=== PATIENT | male | born 1980 | race Caucasian/White ===

== ENCOUNTER 2018-12-15 12:18 | Emergency (ER) | payer OTHER ==
[~2018-12-15] VITALS: Wt 75.5 kg
[2018-12-15 12:21] VITALS: BP 116/61; PULSE 63; RESP 20
[2018-12-15] MEDS ORDERED: AMOX1TAB9 PO (13:08)
--- NOTE | 2018-12-15 13:12 | ERD ---
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 Patient was just recently started on Augmentin and states that the Augmentin seems to be helping. He has been having less swelling and pain in his left lower jaw. He reports no fevers or chills. However, he states that he just got out of a detox facility and is now running out of his antibiotic. Currently he reports no fevers, chills or difficulty speaking. ROS All systems reviewed and are negative except as per history of present illness. Medications Home Meds Active Scripts Amoxicillin/Potassium Clav (Amox-Clav 500-125 mg Tablet) 500-125 mg Tab, 1 TAB PO BID for 7 Days, TAB Prov:MILES CHAVARRIA 12/15/18 Physical Exam Vitals Vital Signs Date Temp Pulse Resp B/P (MAP) Pulse Ox O2 O2 Flow FiO2 Time Delivery Rate 12/15/18 97.5 63 20 116/61 97 12:21 (79) Physical Exam General: well developed, well nourished, in no distress. Neuro: Normal speech, gait, balance HEENT: Patient has poor dentition with minimal gingival erythema. No odontogenic abscess noted. No facial cellulitis noted. No significant cervical lymphadenopathy Procedures/MDM Patient was taken to a room, seen and examined Medical decision makin-year-old otherwise healthy male presents the emergency room with what appears to be a localized dental infection. At the patient's request she is been given a shot of Rocephin and will be restarted on the Augmentin pending dental evaluation which I have recommended within the next few days. Departure Diagnosis: Primary Impression: Tooth disease Condition: Stable Patient Instructions: Dental Cavity Additional Instructions: Please see the dentist as soon as possible. MILES CHAVARRIA Dec 15, 2018 13:12
[2018-12-15] MEDS ORDERED: CEFTRIAXONE 1 GM INJ IM ONE (13:30)
== END 2018-12-15 13:40 | disposition home or self-care (01) ==
LOC: FTE 12:18
DX: K08.9 Disorder of teeth and supporting structures, unspecified (principal)
CPT/HCPCS: 96372; J0696